=== PATIENT | female | born 1990 | race Caucasian/White ===

== ENCOUNTER 2018-04-13 15:09 | Emergency (ER) | payer OTHER ==
[~2018-04-13] VITALS: Ht 165.1 cm; Wt 70.3 kg
[2018-04-13 15:21] VITALS: BP 111/81; Ht 165.1 cm; Wt 70.3 kg
== END 2018-04-13 16:30 | disposition home or self-care (01) ==
LOC: ED 15:09
DX: T40.601A Poisoning by unspecified narcotics, accidental (unintentional), initial encounter (principal); F11.10 Opioid abuse, uncomplicated; Z88.6 Allergy status to analgesic agent; Z88.5 Allergy status to narcotic agent; Z88.8 Allergy status to other drugs, medicaments and biological substances; Z90.89 Acquired absence of other organs; Y92.89 Other specified places as the place of occurrence of the external cause